=== PATIENT | male | born 1965 | race Caucasian/White ===

== ENCOUNTER → 2020-05-20 | Outpatient (CLI) | payer BC ==
[2020-05-20 11:40] LABS: EOS # 0.2 (0.04-0.40); EOS % 2.4 % (0.0-4.0); HEMATOCRIT 48.4 % (42.0-52.0); HEMOGLOBIN 16.5 g/dL (13.5-18.0); LYMPH# 1.4 (1.50-4.00); MEAN CELL VOLUME 85 fl (78-100); MEAN CORPUSCULAR HEMOGLOBIN 29 pg (27-31); MEAN CORPUSCULAR HGB CONC 34 g/dL (33-37); MEAN PLATELET VOLUME 9.9 fl (7.4-10.4); MONO # 0.5 (0.20-0.80); NEU # 4.3 (1.40-6.50); PLATELET COUNT 247 K/mm3 (130-400); RED BLOOD COUNT 5.69 M/mm3 (4.20-5.60); RED CELL DISTRIBUTION WIDTH 12.7 % (11.5-14.5); WHITE BLOOD COUNT 6.4 K/mm3 (4.8-10.8)
[2020-05-20 11:45] LABS: POTASSIUM 4.3 mmol/L (3.5-5.1); SODIUM 142 mmol/L (136-145)
[2020-05-20 11:46] LABS: CALCIUM 8.7 mg/dL (8.3-10.5); GLUCOSE 129 mg/dL (75-110)
[2020-05-20 11:48] LABS: CARBON DIOXIDE 23 mmol/L (22-29)
[2020-05-20 12:03] LABS: TROPONIN-I < 0.03 ng/mL (<0.030)
== END ==
LOC: LAB 11:20
PROVIDERS: Family Medicine
DX: R06.00 Dyspnea, unspecified (principal)